=== PATIENT | female | born 1945 | race Caucasian/White ===

== ENCOUNTER 2024-01-07 14:49 | Emergency (ER) | payer MEDICARE, SELFPAY ==
[2024-01-07 15:01] VITALS: BP 128/77
--- NOTE | 2024-01-07 17:35 | ED.GENMED ---
History of Present Illness
General
Chief Complaint: Fall
Time Seen by Provider: 01/07/24 17:35
Travel History
Have you had any contact with someone who has COVID-19?: No
Do you have any symptoms of coronavirus? Fever > 100 degrees, chills, cough, shortness of breath, sore throat, loss of taste or smell, muscle aches, or headache?: No
History of Present Illness
History of Present Illness:
HPI: Patient presents after fall. She was in her kitchen with slippers that had poor track and she fell down striking the back of her head against a cabinet. There was no loss of consciousness. She denies any other injury. She went to urgent
care but urgent care wanted her to come in here for further evaluation. She is not on anticoagulation but does take baby aspirin related to prior stroke from about 10 years ago.
EXAM:
GENERAL: Well appearing in no distress
CERVICAL SPINE: No midline c-spine tenderness with excellent AROM
HEAD: No evidence of craniofacial trauma
CHEST: No chest wall tenderness, normal heart sounds
LUNGS: Equal lung sounds, no respiratory distress
ABDOMEN: No abdominal tenderness, no peritoneal signs
EXTREMITIES: Normal active range of motion, no tenderness
NEURO: Excellent strength all extremities, appropriate mental status, normal speech/language
TIME OF INITIAL ENCOUNTER: 5:15 PM
NUMBER AND COMPLEXITY OF PROBLEMS ADDRESSED AT THE ENCOUNTER
� Chronic conditions affecting care: CKD, high blood pressure, hyperlipidemia, CVA
� Acute Exacerbation and/or Progression of Chronic Illness: This is an acute problem
� Differential Diagnosis includes: Intracranial hemorrhage, concussion, minor head injury
AMOUNT AND/OR COMPLEXITY OF DATA TO BE REVIEWED AND ANALYZED
� I performed an independent evaluation of and my interpretation is:
EKG:
CT: I personally viewed CT imaging and see no definite acute abnormality
X-rays:
Laboratory Studies:
Other:
� Review of other/old records: No old records available for review
� Clinical information was obtained by an independent historian: I spoke to daughter at bedside
� Prescriptions/Medications Considered but not given:
� Further testing considered but not performed:
RISK OF COMPLICATIONS AND/OR MORBIDITY OR MORTALITY OF PATIENT MANAGEMENT
� Social determinants of health affecting care: Lives at home
� Discussion with other providers:
� Escalation of care including admission/observation vs risk of discharge considered: Given patient's advanced age on aspirin, CT imaging was obtained which was unremarkable. She denies any other symptoms. She is well-appearing
on reassessment at 6:20 PM.
Phy Exam
Physical Exam
Physical Exam:
See HPI
Course
Orders/Labs/Results
Orders:
Orders
01/07/24 15:[address] [CT Head W/o Iv Contrast] Urgent
Comment:
Reason For Exam: head injury
Vital Signs
Initial and Last Documented VS:
Initial Vital Signs
Temp Pulse Resp BP Pulse Ox
97.5 F 79 18 128/77 97
01/07/24 15:01 01/07/24 15:01 01/07/24 15:01 01/07/24 15:01 01/07/24 15:01
Last Documented Vital Signs
Temp Pulse Resp BP Pulse Ox
97.5 F 79 18 128/77 97
01/07/24 15:01 01/07/24 15:01 01/07/24 15:01 01/07/24 15:01 01/07/24 15:01
*Critical Care Note
Total Time (30-74mins, 75-104mins- exclusive of procedures): Not Applicable
ED Attending Note
-
Portions of this chart may have been created with voice recognition software.� Occasional wrong word or��sound alike� substitutions may have occurred due to the inherent limitations of voice recognition software.
Discharge Plan
Departure
Patient Disposition: Home (Routine Discharge)
Date of Disposition: 01/07/24
Time of Disposition: 18:24
Patient with high blood pressure during this ER visit?: Yes
Discharge Problem:
Head injury
Instructions: Head Injury in Adults (DC)
Referrals:
Bessy Ott DO [Family Provider] -
Activity Restrictions/Additional Instructions:
CT imaging shows no acute abnormality meaning no bleeding in the brain. Return here if worse. Follow-up with PMD.
Interventions
Interventions:
*Risk Screen - Suicide Last Done: 01/07/24 18:47
*General Assessment Last Done: 01/07/24 18:47
*Nursing Disposition Last Done: 01/07/24 18:49
ED-Musculoskeletal Assessment Last Done: 01/07/24 18:07
ED- Neurological Assessment Last Done: 01/07/24 18:07
ED-Skin Assessment Last Done: 01/07/24 18:08
Discharge Date and Time
Discharge Date/Time: 01/07/24 18:49
Print Language: MONTSERRATIAN
== END 2024-01-07 18:49 | disposition home or self-care (01) ==
LOC: EMR 14:49
PROVIDERS: EMERGENCY PHYSICIAN Emergency Medicine; FAMILY PHYSICIAN Student in an Organized Health Care Education/Training Program
DX: S09.90XA Unspecified injury of head, initial encounter (principal); W01.190A Fall on same level from slipping, tripping and stumbling with subsequent striking against furniture, initial encounter; E78.00 Pure hypercholesterolemia, unspecified; I10 Essential (primary) hypertension; N18.9 Chronic kidney disease, unspecified; Z86.73 Personal history of transient ischemic attack (TIA), and cerebral infarction without residual deficits; Z79.82 Long term (current) use of aspirin
CPT/HCPCS: 99284; 70450

== ENCOUNTER 2024-09-27 14:30 | Emergency (ER) | payer MEDICARE, SELFPAY ==
[2024-09-27] VITALS (9 sets, daily range): BP systolic 83–132; BP diastolic 30–85
--- NOTE | 2024-09-27 17:38 | ED.GENMED ---
History of Present Illness
General
Chief Complaint: Fall
Source: patient and family
Exam Limitations: none
Time Seen by Provider: 09/27/24 17:24
History of Present Illness
History of Present Illness:
See MDM
Past History
Past History
ED Past Medical History: HTN and Hypercholesterolemia
ED Past Surgical History: Other (Cataracts)
Social History
Tobacco: Non-smoker
Alcohol: None
Phy Exam
Physical Exam
Physical Exam:
See MDM
Course
Orders/Labs/Results
Orders:
Orders
09/27/24 14:43
CT Head W/o Iv Contrast Urgent
Comment:
Reason For Exam: head strike
CR Shoulder - Right Min 2 View Urgent
Comment:
Reason For Exam: pain
Humerus, Right 2 Views [CR Humerus - Right Min 2 View*] Urgent
Comment:
Reason For Exam: pain
09/27/24 17:39
Morphine Sulfate 4 mg IV NOW STA
09/27/24 17:47
Shoulder Immobilizer Right- Tx ONCE
09/27/24 17:58
CR Shoulder - Right 1 View Urgent
Comment:
Reason For Exam: post-reduction
09/27/24 18:02
Propofol [Diprivan] 20 ml .ROUTE .STK-MED
Vital Signs
Initial and Last Documented VS:
Initial Vital Signs
Temp Pulse Resp BP Pulse Ox
98.5 F 63 18 132/70 97
09/27/24 14:40 09/27/24 14:40 09/27/24 14:40 09/27/24 14:40 09/27/24 14:40
Last Documented Vital Signs
Temp Pulse Resp BP Pulse Ox
98.2 F 75 20 86/36 98
09/27/24 18:22 09/27/24 18:20 09/27/24 18:20 09/27/24 18:20 09/27/24 18:20
Procedures
Moderate Sedation
ASA Risk Score: Class II
Chart and allergies reviewed: Yes
Consent for anesthesia obtained: Yes
Time out completed (validating right patient & procedure): Yes
Moderate Sedation Start Time(when first medication is given): 18:10
History of difficult intubation: No
Airway free of obstruction: Yes
Patient has a gag reflex: Yes
Patient is able to open mouth: Yes
Patient has no dentures: Yes
Patient has no loose teeth: Yes
Medication administered by Provider during Moderate Sedation: IV Propofol (mg)
Total dose administered: 50
Time drug administered: 18:10
Moderate Sedation Procedure End Time: 18:20
Comment: Time out 1808
Joint/Fracture Reduction
Right Anterior Lateral Shoulder:
Indication for procedure:: Right shoulder dislocation
Procedure completed by: Naresh Acuña DO
Consent form signed: Yes
Joint reduced: with anesthesia sedation
Injury was: closed
Further treatement: needs further treatment
Post reduction exam: stable
Capillary Refill: normal
Peripheral Pulses: radial (right): 2+
MDM/Problems Addressed
Differential Diagnosis Includes:
HPI and MDM Narrative:
79-year-old female presenting with right shoulder pain. Patient had a trip and fall at home and she hit her head. She is right-hand dominant. CT head and shoulder x-ray done prior to my evaluation. CT head negative. She does have right shoulder
dislocation greater tuberosity fractures. Daughter at bedside. Patient gave verbal consent for moderate sedation and reduction and her daughter signed consent
Physical exam
General: Well appearing and non-toxic
HEENT: protecting airway. Bruising to right forehead
Neck: appears supple
CV: No evidence of cyanosis
Resp: No accessory muscle use
Abd: Non-distended
Extremities: Tenderness to right anterior shoulder. Distal extremity neurovascularly intact
Neuro: alert
Psych: Normal affect
Skin: Intact
Problems Addressed including Acute and Chronic Conditions affecting care:
1. Right shoulder dislocation
Acuity: acute
Prognosis: stable
Details: Patient signed consent for moderate sedation.
Updates
Patient tolerated moderate sedation and reduction well and post films show that shoulder is back in place.
Differential Diagnosis (but not limited to): Concussion, shoulder dislocation, fracture
Testing considered: CT neck but she denies pain
Drug therapy (if applicable): OTC meds, please see d/c instruction regarding Rx drugs
Amount and/or Complexity of Data Reviewed
Clinical info obtained from: Patient
External data reviewed: N/A
Labs I independently reviewed (but not limited to): N/A
Radiology: X-ray independently reviewed: Right anterior shoulder dislocation with fracture
Pulse Ox: not hypoxic
EKG independently reviewed: N/A
Senior Android Software Engineer: N/A
Critical Care: N/A
Risk of Complication:
Social Determinants of health: Good social support
Discussed with other providers: N/A
Escalation of Care includes Admit/Obs: After being observed in the Emergency Department, pt stable for discharge.
Occasional wrong word or 'sound a like' substitutions may have occurred due to the inherent limitations of voice recognition software. Read the chart carefully and recognize, using context, where substitutions have occurred.
*Critical Care Note
Total Time (30-74mins, 75-104mins- exclusive of procedures): Not Applicable
ED Attending Note
-
Portions of this chart may have been created with voice recognition software.� Occasional wrong word or��sound alike� substitutions may have occurred due to the inherent limitations of voice recognition software.
Discharge Plan
Departure
Patient Disposition: Home (Routine Discharge)
Date of Disposition: 09/27/24
Time of Disposition: 18:28
Patient with high blood pressure during this ER visit?: No
Discharge Problem:
Dislocation of right shoulder joint
Instructions: Shoulder Dislocation (DC), MODERATE SEDATION ADULT
Prescriptions:
New
oxycodone 5 mg tablet
5 mg PO Q8H PRN (Reason: Pain) Qty: 10 0RF
Referrals:
Nikos Estrella MD [Active] -
Activity Restrictions/Additional Instructions:
Please return for any worsening symptoms.
You may return at any time if you have further concerns.
Please follow up with the orthopedist at the first available appointment.
Please continue to use the shoulder immobilizer for comfort until told otherwise by the orthopedist.
You were given a prescription for narcotics. If you require this pain medicine, please take a daily [id number] stool softener to avoid constipation.
Thank you for choosing [facility].
Interventions
Interventions:
*Risk Screen - Suicide Last Done: 09/27/24 14:40
*General Assessment Last Done: 09/27/24 14:40
*Neglect/Abuse Screening Last Done: 09/27/24 14:40
ED- Fall Risk Assessment Last Done: 09/27/24 17:04
*ED COVID-19 Vaccine History Last Done: 09/27/24 14:40
ED-Musculoskeletal Assessment Last Done: 09/27/24 17:04
ED- Neurological Assessment Last Done: 09/27/24 17:04
Discharge Date and Time
Print Language: VIETNAMESE
[2024-09-27] MEDS: MORPHINE SULFATE 4 MG IV (17:44)
[2024-09-27] MEDS: PERCOCET 5/325 1 TABLET PO (20:10)
== END 2024-09-27 20:31 | disposition home or self-care (01) ==
LOC: EMR 14:30
PROVIDERS: EMERGENCY PHYSICIAN Student in an Organized Health Care Education/Training Program; FAMILY PHYSICIAN Nurse Practitioner Family
DX: S43.014A Anterior dislocation of right humerus, initial encounter (principal); S00.83XA Contusion of other part of head, initial encounter; W01.0XXA Fall on same level from slipping, tripping and stumbling without subsequent striking against object, initial encounter; Y92.009 Unspecified place in unspecified non-institutional (private) residence as the place of occurrence of the external cause; I10 Essential (primary) hypertension; E78.00 Pure hypercholesterolemia, unspecified
CPT/HCPCS: 99285; 23650; 96374; 99152; 70450; 73020; 73030; 73060

== ENCOUNTER 2024-12-22 20:36 | Emergency (ER) | payer MEDICARE, SELFPAY ==
[2024-12-22 20:36] VITALS: BMI 22.2
[2024-12-22 20:45] VITALS: BP 143/66
--- NOTE | 2024-12-23 00:10 | ED.GENMED ---
History of Present Illness
General
Chief Complaint: Fall
Source: patient and family
Time Seen by Provider: 12/22/24 23:56
History of Present Illness
History of Present Illness:
79-year-old female who takes a daily aspirin was in her home at around 7 PM today, turned too quickly, lost her balance and fell. She did hit her head but there was no loss of consciousness. She was able to get up on her own and contact her
daughter who brought her here. She denies headache but she does have discomfort at the area of swelling at the right forehead area. She also notes a bruise at the lateral aspect of her right buttock/hip area. She denies pain with ambulation or
movement of the hip. She denies any other complaints. Patient has a history of shoulder injury and that discomfort is baseline and not exacerbated. She denies neck pain, numbness, tingling, focal weakness, double vision, blurry vision,
infraorbital anesthesia, or other complaints.
Past History
Past History
ED Past Medical History: HTN, Hypercholesterolemia and Other (CKD, CVA)
ED Past Surgical History: Other (Cataracts)
Social History
Tobacco: Non-smoker
Alcohol: None
Drug: None
Living: alone
Phy Exam
Physical Exam
Physical Exam:
GENERAL: Alert , in no apparent distress
EYE: pupils equal and reactive, no photophobia, EOMI, no nystagmus, no hyphema. Visual casper are intact.
NECK: Supple, no significant adenopathy, no midline tenderness.
ENT: o/p clr, mmm, there is edema and bruising noted at the right frontal area with mild tenderness to palpation, no crepitus. There is bruising that has developed in the right periorbital area without associated bony tenderness of the orbit,
step-off, crepitus, infraorbital anesthesia, or other abnormalities.
CARDIAC: Regular rate and rhythm .
LUNGS: Clear breath sounds bilaterally, no acute respiratory distress, no wheezes/rales/rhonchi
ABDOMEN: Soft, without focal tenderness, no r/g, no cvat
NEUROLOGICAL: Alert and oriented, no focal neuro deficits
SKIN: Warm and dry, skin intact. Bruise noted at the right lateral hip/buttock area without associated bony tenderness.
MUSCULOSKELETAL: No edema, well perfused. Range of motion preserved of lower extremities bilaterally
PSYCH: Normal and appropriate interaction.
Course
Orders/Labs/Results
Orders:
Orders
12/22/24 20:[address] [CT Head W/o Iv Contrast] Urgent
Comment:
Reason For Exam: fall with head strike
Vital Signs
Initial and Last Documented VS:
Initial Vital Signs
Temp Pulse Resp BP Pulse Ox
98.5 F 80 20 143/66 99
12/22/24 20:45 12/22/24 20:45 12/22/24 20:45 12/22/24 20:45 12/22/24 20:45
Last Documented Vital Signs
Temp Pulse Resp BP Pulse Ox
98.5 F 80 20 100/83 98
12/22/24 20:45 12/22/24 20:45 12/22/24 20:45 12/23/24 00:15 12/23/24 00:30
*Critical Care Note
Total Time (30-74mins, 75-104mins- exclusive of procedures): Not Applicable
Update Note
Update Note:
Patient presents to the Emergency Department with fall
Number and Complexity of Problems Addressed at the Encounter
� Chronic conditions affecting care:
� Acute Exacerbation and/or Progression of Chronic Illness:
� Differential Diagnosis includes: But not limited to orbital fracture, intracranial bleed, concussion, etc. etc.
Amount and/or Complexity of Data to be Reviewed and Analyzed
� I performed an independent evaluation of and my interpretation is:
EKG:
CT: Vision right forehead/periorbital soft tissue hematoma, no calverial fracture, no acute intracranial findings, global cerebral volume loss and mild chronic microvascular changes and white matter
Xrays:
Laboratory Studies:
Other:
� Review of other/old records reveals:
� Clinical information was obtained by an independent historian: Attentive daughter who is at bedside
� Prescriptions/Medications Considered but not given:
� Further testing considered but not performed:
Risk of Complications and/or Morbidity or Mortality of Patient Management
� Social determinants of health affecting care:
� Discussion with other providers (PCP, Hospitalists, Consultants, etc):
� Escalation of care including admission/observation vs risk of discharge considered: Suspicion low for orbital fracture given lack of findings except for bruising there. Discussed with patient and daughter importance of close
monitoring for diplopia, blurry vision, increasing or new pain, etc. etc. Patient is due to get a CAT scan of her right shoulder tomorrow for further evaluation preoperatively therefore x-ray of right shoulder not obtained today. Discussed with
patient importance of follow-up and reasons to return to the ER.
ED Attending Note
-
Portions of this chart may have been created with voice recognition software.� Occasional wrong word or��sound alike� substitutions may have occurred due to the inherent limitations of voice recognition software.
Discharge Plan
Departure
Patient Disposition: Home (Routine Discharge)
Date of Disposition: 12/23/24
Time of Disposition: 00:21
Patient with high blood pressure during this ER visit?: Yes
Condition: Good
Discharge Problem:
Closed head injury
Instructions: Taking care of bruises, Head Injury in Adults (DC), Preventing falls in adults, BLOOD PRESSURE
Prescriptions:
No Action
oxycodone 5 mg tablet
5 mg PO Q8H PRN (Reason: Pain) Qty: 10 0RF
Activity Restrictions/Additional Instructions:
PLEASE SEE YOUR DOCTOR THIS WEEK AND CLOSE FOLLOW-UP. IF YOU DEVELOP VISUAL CHANGES SUCH BLURRY OR DOUBLE VISION, INCREASING OR NEW PAIN, INCREASING OR NEW SWELLING, SEVERE HEADACHE, VOMITING, NUMBNESS, DIZZINESS, CHEST PAIN, SHORTNESS OF
BREATH, OR OTHER WORRISOME SIGNS, PLEASE RETURN TO THE ER IMMEDIATELY.
Interventions
Interventions:
*General Assessment Last Done: 12/22/24 20:45
*Neglect/Abuse Screening Last Done: 12/22/24 20:45
*ED COVID-19 Vaccine History Last Done: 12/22/24 20:45
*Nursing Disposition Last Done: 12/23/24 01:04
ED-Musculoskeletal Assessment Last Done: 12/23/24 00:22
ED- Neurological Assessment Last Done: 12/23/24 00:22
ED-Skin Assessment Last Done: 12/23/24 00:22
Discharge Date and Time
Discharge Date/Time: 12/23/24 01:04
Print Language: OCCITAN
[2024-12-23 00:15] VITALS: BP 100/83
== END 2024-12-23 01:04 | disposition home or self-care (01) ==
LOC: EMR 20:36
PROVIDERS: EMERGENCY PHYSICIAN Emergency Medicine; FAMILY PHYSICIAN Family Medicine
DX: S09.90XA Unspecified injury of head, initial encounter (principal); W19.XXXA Unspecified fall, initial encounter; I12.9 Hypertensive chronic kidney disease with stage 1 through stage 4 chronic kidney disease, or unspecified chronic kidney disease; N18.9 Chronic kidney disease, unspecified
CPT/HCPCS: 99284; 70450

== ENCOUNTER → 2024-12-23 08:55 | Outpatient (REF) | payer MEDICARE, SELFPAY | LOC: RAD 08:55 | PROVIDERS: ATTENDING PHYSICIAN Student in an Organized Health Care Education/Training Program; FAMILY PHYSICIAN Nurse Practitioner Family | DX: M25.511 Pain in right shoulder (principal) | CPT/HCPCS: 73200 ==